=== PATIENT | female | born 1985 | race Caucasian/White ===

== ENCOUNTER 2019-08-20 13:00 | Inpatient (IN) | payer OTHER ==
[~2019-08-20] VITALS: Ht 160 cm; Wt 68.0 kg
[~2019-08-20 13:00] MED LIST: CEPH500T PO; DOXY-252 PO; IBUP-2070 PO
[2019-08-22 13:49] LABS: HEMATOCRIT 28.4 % (36-48); MEAN CORPUSCULAR HEMOGLOBIN 23.8 pg (27.0-33.0); MEAN CORPUSCULAR VOLUME 78.5 fL (79-99); RED BLOOD CELL COUNT(AUTO) 3.62 MIL/uL (4.00-5.50)
[2019-08-22 13:50] LABS: MEAN CORPUSCULAR HGB CONC 30.3 g/dL (32.0-36.0); PLATELET COUNT (AUTO) 276 K/uL (130-400); RED CELL DISTRIBUTION WIDTH 13.4 % (11.0-15.5)
[2019-08-23] MEDS ORDERED: CALDOLOR 800MG+NS 250ML 250 ML IV PRN (05:45)
[2019-08-23] MEDS ORDERED: CEFAZOLIN SODIUM 1 GM VIAL IVP PRN (05:45)
[2019-08-23] MEDS ORDERED: LACTATED RINGERS 1000ML 1,000 ML IV SCH (05:45)
[2019-08-23] MEDS ORDERED: CEFAZOLIN SODIUM 1 GM VIAL ONE (06:24)
[2019-08-23] MEDS ORDERED: CALDOLOR 800MG+NS 250ML 250 ML IV ONE (06:24)
[2019-08-23] MEDS ORDERED: LACTATED RINGERS 1000ML 1,000 ML IV ONE (06:24)
[2019-08-23] MEDS ORDERED: PHENYLEPHRINE HCL 10 MG/ML 1ML VIAL IV ONE (06:53)
[2019-08-23] MEDS ORDERED: DEXAMETHASONE SOD PHOSPHATE 10MG/ML 1ML VIAL ONE (06:53)
[2019-08-23] MEDS ORDERED: OXYTOCIN 10 USP UNITS/ML ONE (06:54)
[2019-08-23] MEDS ORDERED: DURAMORPH PF1 MG/ML 10ML AMP IV ONE (06:54)
[2019-08-23] MEDS ORDERED: EPHEDRINE SULFATE 50 MG/ML AMPULE ONE (06:54)
[2019-08-23] MEDS ORDERED: ONDANSETRON HCL 4 MG/2 ML VIAL ONE (06:54)
[2019-08-23] MEDS ORDERED: CEFAZOLIN SODIUM 1 GM VIAL IVP ONE (07:15)
[2019-08-23] MEDS ORDERED: FENTANYL CITRATE PF 50 MCG/1 ML 2ML VIAL ONE (07:40)
[2019-08-23] MEDS ORDERED: OXYTOCIN-LR 20 UNITS/1000 ML 1,000 ML IV ONE (08:04)
[2019-08-23] MEDS ORDERED: ACETAMINOPHEN EXTRA STRENGTH 500 MG TABLET PO PRN (08:15)
[2019-08-23] MEDS ORDERED: HYDROCODONE/ACETAMINOPHEN 5/325 MG TAB PO PRN (08:15)
[2019-08-23] MEDS ORDERED: BISACODYL 10 MG SUPP.RECT RC PRN (08:15)
[2019-08-23] MEDS ORDERED: SODIUM CHLORIDE 0.9% 10 ML VIAL IVP PRN (08:15)
[2019-08-23] MEDS ORDERED: LANOLIN 30GM OINTMENT TP PRN (08:15)
[2019-08-23] MEDS ORDERED: OXYTOCIN-LR 20 UNITS/1000 ML 1,000 ML IV PRN (08:15)
[2019-08-23] MEDS: IBUPROFEN 800 MG TAB PO SCH (08:15)
[2019-08-23] MEDS ORDERED: MEPERIDINE-PF 75 MG/ML SYG IM PRN (08:15)
[2019-08-23] MEDS ORDERED: DIPHENHYDRAMINE HCL 25 MG CAPSULE PO PRN (08:15)
[2019-08-23] MEDS ORDERED: MEPERIDINE-PF 100 MG/ML SYG ONE (08:50)
[2019-08-23] MEDS: PROMETHAZINE HCL 25 MG/ML 1ML AMPULE IM PRN ×2 (08:53→20:52)
[2019-08-23] MEDS ORDERED: NALOXONE HCL 0.4 MG/1 ML ML IVP PRN ×3 (09:00)
[2019-08-23] MEDS ORDERED: DiphenhydrAMINE HCL 50 MG/ML VIAL IVP PRN (09:00)
[2019-08-23] MEDS ORDERED: ONDANSETRON HCL 4 MG/2 ML VIAL IVP PRN (09:00)
[2019-08-23 09:45] VITALS: BP 127/85
--- NOTE | 2019-08-23 09:45 | NUR ---
PATIENT ORIENTED TO ROOM. FUNDUS IS FIRM. NO BLEEDING ON MASSAGE. SCDS TO BILATERAL LOWER EXTREMITIES. ABDOMINAL BINDER APPLIED REQUESTED BY PATIENT. LANOLIN USE AND DIRECTION EXPLAINED TO PATIENT. CALL LIGHT LEFT IN REACH. ADVISED PATIENT TO CALL WITH ANY NEEDS OR CONCERNS.
[2019-08-23 11:45] VITALS: BP 124/67
[2019-08-23 16:20] VITALS: BP 107/60
--- NOTE | 2019-08-23 16:20 | NUR ---
PERICARE GIVEN AT THIS TIME. OB PAD IS CLEAN NO BLOOD NOTED. FUNDUS IS FIRM. ABDOMINAL BINDER IN PLACE. TREVIÑO CATHETER DRAINED 600ML OF CLEAR YELLOW URINE MEASURED. NO PAIN REPORTED. CALL LIGHT LEFT IN REACH
[2019-08-23] MEDS: CALDOLOR 800MG+NS 250ML 250 ML IV SCH (16:23)
[2019-08-23] MEDS ORDERED: FLUO20CA30 PO (18:39)
[2019-08-23] MEDS ORDERED: PNV1TABL17 PO (18:39)
[2019-08-23 19:35] VITALS: BP 148/58
[2019-08-23] MEDS: DOCUSATE SODIUM 100 MG CAP PO SCH ×2 (21:00→21:22)
[2019-08-23] MEDS: SIMETHICONE 80 MG TAB.CHEW PO PRN (21:22)
[2019-08-23] MEDS: DEXTROSE 5 %-0.45 % NACL 1,000 ML IV PRN (21:24)
[2019-08-23 23:54] VITALS: BP 108/55
[2019-08-24] MEDS: IBUPROFEN 800 MG TAB PO SCH ×3 (00:15→16:22)
[2019-08-24] MEDS: CALDOLOR 800MG+NS 250ML 250 ML IV SCH (00:25)
[2019-08-24 03:52] VITALS: BP 97/55
[2019-08-24] MEDS: DEXTROSE 5 %-0.45 % NACL 1,000 ML IV PRN (06:52)
--- NOTE | 2019-08-24 06:55 | NUR ---
Cooper; Cooper catheter taken out patient advice to call for help if needed to get up the first time to use the restroom.
--- NOTE | 2019-08-24 07:10 | NUR ---
Lab; Lab called informed that patient hemoglobin is 6.8 but was informed that the blood sent was very small and requested a Sewer Line Repairer to redraw the blood to confirm.
[2019-08-24 07:14] LABS: HEPATITIS Bs ANTIGEN SCREEN P Negative (Negative)
--- NOTE | 2019-08-24 07:20 | NUR ---
Report given to Madeline De Luna LVN.
[2019-08-24 07:43] LABS: HEMATOCRIT 23.9 % (36-48); MEAN CORPUSCULAR HEMOGLOBIN 23.8 pg (27.0-33.0); MEAN CORPUSCULAR HGB CONC 30.1 g/dL (32.0-36.0); MEAN CORPUSCULAR VOLUME 79.1 fL (79-99); PLATELET COUNT (AUTO) 230 K/uL (130-400); RED BLOOD CELL COUNT(AUTO) 3.02 MIL/uL (4.00-5.50); RED CELL DISTRIBUTION WIDTH 13.5 % (11.0-15.5); WHITE BLOOD COUNT (AUTO) 9.6 K/uL (4.8-10.8)
[2019-08-24 07:46] VITALS: BP 107/59
[2019-08-24] MEDS: LIDOCAINE 5% TOPICAL PATCH TP SCH ×2 (08:42→09:00)
[2019-08-24] MEDS: SIMETHICONE 80 MG TAB.CHEW PO PRN ×3 (08:42→21:04)
[2019-08-24] MEDS: DOCUSATE SODIUM 100 MG CAP PO SCH ×2 (08:42→21:03)
--- NOTE | 2019-08-24 10:20 | NUR ---
FLORESITA ROUNDING ON PATIENT. POC DISCUSSED WITH PATIENT. NEW ORDERS FOR CBC IN AM.
[2019-08-24 11:16] VITALS: BP 107/65
--- NOTE | 2019-08-24 11:30 | NUR ---
PATIENT AMBULATING IN HALLWAY ACCOMPANIED BY SIGNIFICANT OTHER. NO C/O DIZZINESS REPORTED.
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
[2019-08-24] MEDS: ACETAMINOPHEN-CODEINE 300/30MG TAB PO PRN ×2 (12:23→19:43)
--- NOTE | 2019-08-24 16:20 | NUR ---
PATIENT REFUSED DULCOLAX SUPPOSITORY. PATIENT STATES SHE IS ALREADY PASSING FLATUS. ADVISED PATIENT TO CONTINUE TO AMBULATE.
[2019-08-24 16:21] VITALS: BP 103/66
[2019-08-24 19:54] VITALS: BP 109/61
[2019-08-24 23:53] VITALS: BP 112/59
[2019-08-25] VITALS (8 sets, daily range): BP systolic 96–126; BP diastolic 52–75
[2019-08-25] MEDS: IBUPROFEN 800 MG TAB PO SCH ×3 (00:17→16:13)
[2019-08-25 06:31] LABS: HEMATOCRIT 22.1 % (36-48); MEAN CORPUSCULAR HEMOGLOBIN 23.6 pg (27.0-33.0); MEAN CORPUSCULAR HGB CONC 29.9 g/dL (32.0-36.0); MEAN CORPUSCULAR VOLUME 78.9 fL (79-99); PLATELET COUNT (AUTO) 267 K/uL (130-400); RED CELL DISTRIBUTION WIDTH 13.7 % (11.0-15.5); WHITE BLOOD COUNT (AUTO) 7.9 K/uL (4.8-10.8)
--- NOTE | 2019-08-25 07:30 | NUR ---
Communication: Dr. Suarez called via telephone informed about patient hemoglobin of 6.6, hematocrit of 22.1. Maury Mcginnis CNM talk to Dr. Suarez about plan of care. Patient verbalizes understanding. Maury Mcginnis CNM at bedside talk to patient of the plan to transfuse blood and also check patient for vaginal bleeding and verbalizes to transfuse 4 units of blood to start 3 units first and check H/H after the third unit and transfuse 1 unit after.
[2019-08-25] MEDS ORDERED: SODIUM CHLORIDE 0.9% 1000ML 1,000 ML IV SCH (08:00)
[2019-08-25] MEDS: SIMETHICONE 80 MG TAB.CHEW PO PRN (08:35)
[2019-08-25] MEDS: LIDOCAINE 5% TOPICAL PATCH TP SCH (08:35)
[2019-08-25] MEDS: DOCUSATE SODIUM 100 MG CAP PO SCH (08:35)
[2019-08-25] MEDS: ACETAMINOPHEN-CODEINE 300/30MG TAB PO PRN (10:14)
--- NOTE | 2019-08-25 11:09 | NUR ---
1ST unit of blood started transfusing, witnessed by Mabel GAMBINO Addendum: 08/25/19 at 1120 by ANA LAURA COWART RN Amended: Links added.
--- NOTE | 2019-08-25 12:35 | NUR ---
blood transfusion stopped at 1235, pt complains of pain on IV site, tried to flush but to no avail. IV removed, applied pressure on IV site. Addendum: 08/25/19 at 1447 by ANA LAURA COWART RN Amended: Links added.
--- NOTE | 2019-08-25 13:35 | NUR ---
pt complains of pain on IV site, tried to flush but unable to. Zahida Nassar-BREN, and Noemi Villa- BREN attempted to start an IV but to no avail. Informed Maury Shelton and she said to notify Dr. Suarez. Notified Dr. Suarez via phone and ordered pt to be discharged home on iron pills. Informed pt and voiced understanding.
[2019-08-25] MEDS ORDERED: FERR325T22 PO (14:43)
--- NOTE | 2019-08-25 16:10 | NUR ---
verbal and written discharge instructions given, informed of the follow up appointment, prescription given, all questions answered, informed to call the doctor for any concerns. pt voiced understanding to all things discussed. Addendum: 08/25/19 at 1629 by ANA LAURA COWART RN Amended: Links added.
--- NOTE | 2019-08-25 17:30 | NUR ---
pt is dismissed in stable condition, brought to private car via wheelchair by audie Santana pcp Addendum: 08/25/19 at 1739 by ANA LAURA COWART RN Amended: Links added.
== END 2019-08-25 17:30 | disposition home or self-care (01) | DRG 788 ==
LOC: EDSTATUS 13:00 → LDH 08-23 05:38 → WSH 08-23 09:45
PROVIDERS: ADMIT Obstetrics & Gynecology; ATTEND Obstetrics & Gynecology
PROC: 10D00Z1 Extraction of Products of Conception, Low, Open Approach (ICD-10-PCS; principal; 2019-08-23 07:00)
PROC: 30233N1 Transfusion of Nonautologous Red Blood Cells into Peripheral Vein, Percutaneous Approach (ICD-10-PCS; 2019-08-25)
DX: O34.211 Maternal care for low transverse scar from previous cesarean delivery (principal); D50.9 Iron deficiency anemia, unspecified; O99.02 Anemia complicating childbirth; Z3A.38 38 weeks gestation of pregnancy; Z37.0 Single live birth
CPT/HCPCS: 36415; 59510; 85027; 86592; 86850; 86900; 86901; 86922; 87340; A4344; G0378; J0690; J1100; J1741; J2175; J2274; J2370; J2405; J2550; J2590; J3010; J3490; J7030; J7120; P9016